=== PATIENT | male | born 1990 | race Caucasian/White ===

== ENCOUNTER 2018-12-10 11:06 | Inpatient (IN) | payer MEDICAID, OTHER ==
[2018-12-10] MEDS ORDERED: Nicotine Inhaler* 10 MG AMP INH PRN (11:36)
[2018-12-10 11:52] LABS: ABS Basophils 0 10^3/ul (0-0.2); ABS Eosinophils 0.1 10^3/ul (0-0.6); ABS Lymphocytes 0.8 10^3/ul (1.0-4.8); ABS Monocytes 0.5 10^3/ul (0-0.8); ABS Neutrophils 4.3 10^3/ul (1.5-7.7); ABS Nucleated RBC 0 10^3/ul; Eosinophil % 1.1 %; Hematocrit 44 % (42-52); Hemoglobin 14.9 g/dl (14.0-18.0); Lymphocyte % 13.9 %; Mean Corpuscular HGB Conc 34 g/dl (31-36); Mean Corpuscular Hemoglobin 30 pg (27-31); Mean Corpuscular Volume 89 fL (80-94); Mean Platelet Volume 8.1 fL (7.4-10.4); Nucleated Red Blood Cells % 0.1; Platelet Count 217 10^3/ul (150-450); Red Blood Count 4.99 10^6/ul (4.00-5.40); Red Cell Distribution Width 13 % (10.5-15); White Blood Count 5.7 10^3/ul (3.5-10.8)
[2018-12-10 12:09] LABS: ALT 12 U/L (7-52); AST 19 U/L (13-39); Albumin 4.8 g/dL (3.2-5.2); Albumin/Globulin Ratio 2.3 (1-3); Alkaline Phosphatase 76 U/L (34-104); Anion Gap 10 mmol/L (2-11); BUN/Creatinine Ratio 16.3 (8-20); Blood Urea Nitrogen 14 mg/dL (6-24); CO2 Carbon Dioxide 25 mmol/L (22-32); Calcium 8.8 mg/dL (8.6-10.3); Chloride 104 mmol/L (101-111); EGFR African American 126.3 (>60); EGFR Non-African American 104.4 (>60); Globulin 2.1 g/dL (2-4); Glucose 75 mg/dL (70-100); Potassium 3.9 mmol/L (3.5-5.0); Sodium 139 mmol/L (135-145); Total Protein 6.9 g/dL (6.4-8.9)
[2018-12-10 12:18] LABS: Urine Appearance Clear; Urine Bilirubin Negative (Negative); Urine Blood Negative (Negative); Urine Color Yellow; Urine Glucose Negative (Negative); Urine Ketones 2+ (Negative); Urine Nitrite Negative (Negative); Urine Protein Negative (Negative); Urine Urobilinogen Negative (Negative)
[2018-12-10 12:41] LABS: Acetaminophen < 15 mcg/mL; Alcohol < 10 mg/dL (<10); Salicylate < 2.50 mg/dL (<30)
[2018-12-10 12:53] LABS: Barbiturates Urine Screen None Detected (None Detect); Benzodiazepine Urine Screen None Detected (None Detect); Urine Cannabinoids Screen None Detected (None Detect)
[2018-12-10 12:55] LABS: TSH (Thyroid Stimulating Horm) 1.58 mcIU/mL (0.34-5.60)
--- NOTE | 2018-12-10 14:02 | ED ---
Psychiatric Complaint - HPI Summary HPI Summary: Patient is a 28-year-old male whose presenting to the ED with "hearing voices" for approximately 1 week. Family is at bedside. Family also states he has been going out in the cold and walking around in the snow. He states he is going to wind several million dollars and will get him "a good girlfriend." They state while he is antisocial and has anxiety when meeting new people, he has never had these types of behaviors before. Denies any pain, denies any recent illness. Denies any fevers, sweats, chills. He continues to take sertraline daily. He denies any suicidal or homicidal ideations, he denies any self-harm. - History Of Current Complaint Chief Complaint: EDMentalHealth Time Seen by Provider: 12/10/18 11:35 Hx Obtained From: Patient, Family/Accounting Teacher Onset/Duration: Gradual Onset Timing: Constant Severity Initially: Severe Severity Currently: Severe Aggravating Factor(s): Nothing Alleviating Factor(s): Nothing Associated Signs And Symptoms: Positive: Negative - Risk Factor(s) Completed Suicide Risk Factors: Male - Allergies/Home Medications Allergies/Adverse Reactions: Allergies Allergy/AdvReac Type Severity Reaction Status Date / Time No Known Allergies Allergy Verified 12/10/18 11:14 Home Medications: Home Medications Sertraline* [Zoloft*] 100 mg PO DAILY 12/10/18 [History Confirmed 12/10/18] PMH/Surg Hx/FS Hx/Imm Hx Previously Healthy: Yes Psychiatric History: Denies: Hx Eating Disorder, Hx of Violent Episodes Against Others - Immunization History Hx Pertussis Vaccination: No Immunizations Up to Date: Yes Infectious Disease History: No Infectious Disease History: Denies: Traveled Outside the [place] in Last 30 Days - Social History Occupation: Unemployed Lives: With Family Alcohol Use: None Hx Substance Use: No Substance Use Type: Reports: None Hx Tobacco Use: No Smoking Status (MU): Never Smoked Tobacco Review of Systems Constitutional: Negative Negative: Fever, Chills, Fatigue, Skin Diaphoresis Negative: Palpitations, Chest Pain Negative: Shortness Of Breath, Cough Genitourinary: Negative Positive: no symptoms reported, see HPI Negative: Arthralgia, Myalgia Positive: Other - acute psychosis. Negative: Anxious, Depressed All Other Systems Reviewed And Are Negative: Yes Physical Exam Triage Information Reviewed: Yes Vital Signs On Initial Exam: Initial Vitals Temp Pulse Resp BP Pulse Ox 99.2 F 112 17 133/85 96 12/10/18 11:11 12/10/18 11:11 12/10/18 11:11 12/10/18 11:11 12/10/18 11:11 Vital Signs Reviewed: Yes Appearance: Positive: Ill-Appearing, Thin, Cachectic Skin: Positive: Dry, Pale Eyes: Positive: EOMI, AQUILES, Conjunctiva Clear Neck: Positive: No Lymphadenopathy Respiratory/Lung Sounds: Positive: Clear to Auscultation, Breath Sounds Present Cardiovascular: Positive: Pulses are Symmetrical in both Upper and Lower Extremities Musculoskeletal: Positive: Strength/ROM Intact Neurological: Positive: Speech Normal Psychiatric: Positive: Other - Patient cooperative for exam. Patient appears to have social anxiety. Diagnostics - Vital Signs Vital Signs Temp Pulse Resp BP Pulse Ox 12/10/18 11:11 99.2 F 112 17 133/85 96 - Laboratory Lab Results: Lab Results 12/10/18 12/10/18 12/10/18 Range/Units 11:42 11:42 11:52 WBC 5.7 (3.5-10.8) 10^3/ul RBC 4.99 (4.00-5.40) 10^6/ul Hgb 14.9 (14.0-18.0) g/dl Hct 44 (42-52) % MCV 89 (80-94) fL MCH 30 (27-31) pg MCHC 34 (31-36) g/dl RDW 13 (10.5-15) % Plt Count 217 (150-450) 10^3/ul MPV 8.1 (7.4-10.4) fL Neut % (Auto) 74.9 % Lymph % (Auto) 13.9 % Fayette % (Auto) 9.6 % Eos % (Auto) 1.1 % Baso % (Auto) 0.5 % Absolute Neuts (auto) 4.3 (1.5-7.7) 10^3/ul Absolute Lymphs (auto) 0.8 L (1.0-4.8) 10^3/ul Absolute Monos (auto) 0.5 (0-0.8) 10^3/ul Absolute Eos (auto) 0.1 (0-0.6) 10^3/ul Absolute Basos (auto) 0 (0-0.2) 10^3/ul Absolute Nucleated RBC 0 10^3/ul Nucleated RBC % 0.1 Sodium 139 (135-145) mmol/L Potassium 3.9 (3.5-5.0) mmol/L Chloride 104 (101-111) mmol/L Carbon Dioxide 25 (22-32) mmol/L Anion Gap 10 (2-11) mmol/L BUN 14 (6-24) mg/dL Creatinine 0.86 (0.67-1.17) mg/dL Est GFR ( Amer) 126.3 (>60) Est GFR (Non-Af Amer) 104.4 (>60) BUN/Creatinine Ratio 16.3 (8-20) Glucose 75 (70-100) mg/dL Calcium 8.8 (8.6-10.3) mg/dL Total Bilirubin 0.40 (0.2-1.0) mg/dL AST 19 (13-39) U/L ALT 12 (7-52) U/L Alkaline Phosphatase 76 (34-104) U/L Total Protein 6.9 (6.4-8.9) g/dL Albumin 4.8 (3.2-5.2) g/dL Globulin 2.1 (2-4) g/dL Albumin/Globulin Ratio 2.3 (1-3) TSH 1.58 (0.34-5.60) mcIU/mL Urine Color Yellow Urine Appearance Clear Urine pH 5.0 (5-9) Ur Specific Thornton 1.020 (1.010-1.030) Urine Protein Negative (Negative) Urine Ketones 2+ A (Negative) Urine Blood Negative (Negative) Urine Nitrate Negative (Negative) Urine Bilirubin Negative (Negative) Urine Urobilinogen Negative (Negative) Ur Leukocyte Esterase Negative (Negative) Urine Glucose Negative (Negative) Salicylates < 2.50 (<30) mg/dL Urine Opiates Screen (None Detect) Acetaminophen < 15 mcg/mL Ur Barbiturates Screen (None Detect) Ur Phencyclidine Scrn (None Detect) Ur Amphetamines Screen (None Detect) U Benzodiazepines Scrn (None Detect) Urine Cocaine Screen (None Detect) U Cannabinoids Screen (None Detect) Serum Alcohol < 10 (<10) mg/dL 12/10/18 Range/Units 11:52 WBC (3.5-10.8) 10^3/ul RBC (4.00-5.40) 10^6/ul Hgb (14.0-18.0) g/dl Hct (42-52) % MCV (80-94) fL MCH (27-31) pg MCHC (31-36) g/dl RDW (10.5-15) % Plt Count (150-450) 10^3/ul MPV (7.4-10.4) fL Neut % (Auto) % Lymph % (Auto) % Fayette % (Auto) % Eos % (Auto) % Baso % (Auto) % Absolute Neuts (auto) (1.5-7.7) 10^3/ul Absolute Lymphs (auto) (1.0-4.8) 10^3/ul Absolute Monos (auto) (0-0.8) 10^3/ul Absolute Eos (auto) (0-0.6) 10^3/ul Absolute Basos (auto) (0-0.2) 10^3/ul Absolute Nucleated RBC 10^3/ul Nucleated RBC % Sodium (135-145) mmol/L Potassium (3.5-5.0) mmol/L Chloride (101-111) mmol/L Carbon Dioxide (22-32) mmol/L Anion Gap (2-11) mmol/L BUN (6-24) mg/dL Creatinine (0.67-1.17) mg/dL Est GFR ( Amer) (>60) Est GFR (Non-Af Amer) (>60) BUN/Creatinine Ratio (8-20) Glucose (70-100) mg/dL Calcium (8.6-10.3) mg/dL Total Bilirubin (0.2-1.0) mg/dL AST (13-39) U/L ALT (7-52) U/L Alkaline Phosphatase (34-104) U/L Total Protein (6.4-8.9) g/dL Albumin (3.2-5.2) g/dL Globulin (2-4) g/dL Albumin/Globulin Ratio (1-3) TSH (0.34-5.60) mcIU/mL Urine Color Urine Appearance Urine pH (5-9) Ur Specific Thornton (1.010-1.030) Urine Protein (Negative) Urine Ketones (Negative) Urine Blood (Negative) Urine Nitrate (Negative) Urine Bilirubin (Negative) Urine Urobilinogen (Negative) Ur Leukocyte Esterase (Negative) Urine Glucose (Negative) Salicylates (<30) mg/dL Urine Opiates Screen None detected (None Detect) Acetaminophen mcg/mL Ur Barbiturates Screen None detected (None Detect) Ur Phencyclidine Scrn None detected (None Detect) Ur Amphetamines Screen None detected (None Detect) U Benzodiazepines Scrn None detected (None Detect) Urine Cocaine Screen None detected (None Detect) U Cannabinoids Screen None detected (None Detect) Serum Alcohol (<10) mg/dL Result Diagrams: 12/10/18 11:42 12/10/18 11:42 Lab Statement: Any lab studies that have been ordered have been reviewed, and results considered in the medical decision making process. Course/Dx - Course Course Of Treatment: During the course treatment, the patient's evaluated for new bizarre behaviors per family. Patient states he is hearing voices. Patient states he continues to take sertraline daily and denies any suicidal or homicidal ideations. Denies any self-harm. He denies any pain or recent illness. Lungs CTA. RRR. Patient appears well, however continues to put his hands next to his face as we tried to talk to them. Mother states this is normal for him and he has social anxiety. Mental health evaluation completed and it is recommended he come in for further evaluation. [place] [facility] [place] - Differential Dx/Clinical Impression Differential Diagnosis/HQI/PQRI: Positive: Anxiety Provider Diagnosis: Unspecified psychosis Discharge - Sign-Out/Discharge Documenting (check all that apply): Patient Departure - Discharge Plan Condition: Fair Disposition: ADMITTED TO [facility] Referrals: Connor Genao NP [Primary Care Provider] - - Billing Disposition and Condition Condition: FAIR Disposition: Admitted to [facility]
[2018-12-10] MEDS ORDERED: Acetaminophen TAB* 325 MG PO PRN (14:36)
[2018-12-10] MEDS ORDERED: Al Hydrox/Mg Hydrox/Simet LIQ* 30 ML UDC PO PRN (14:36)
[2018-12-10] MEDS ORDERED: LORazepam TAB(*) 1 MG PO PRN (14:37)
[2018-12-10] MEDS ORDERED: Haloperidol TAB* 5 MG PO PRN (14:37)
--- OUTSIDE RECORDS SUMMARY | 2018-12-10 17:11 | XMS REPORT | Continuity of Care Document ---
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 19 day Immunizations Description No Information Available Vital Signs Date Vital Result Comment 12/10/2018 9:40am Height 63 inches 5'3" Weight 96.25 lb Heart Rate 112 /min BP Systolic 140 mmHg BP Diastolic 90 mmHg Body Temperature 98.7 F O2 % BldC Oximetry 97 % BMI (Body Mass Index) 17.0 kg/m2 09/26/2015 9:41am Height 63 inches 5'3" Weight 97.00 lb Heart Rate 120 /min BP Systolic Sitting 129 mmHg BP Diastolic Sitting 78 mmHg Body Temperature 99.2 F BMI (Body Mass Index) 17.2 kg/m2 Results Description No Information Available Procedures Description No Information Available Encounters Type Date Location Provider Dx Diagnosis Office Visit 09/26/2015 [facility] Internal Gilbert Lam F43.23 Adjustment 10:00a Juve - Eduardo Mccarthy disorder with [place] mixed anxiety and depressed mood Plan of Treatment 09/26/2015 - Gilbert Mccarthy M.D.F43.23 Adjustment disorder with mixed anxiety and depressed moodNew Medication:Zoloft 25 mg - 1 by mouth every dayComments:Chronic ?anxiety/depression/mood issues with recent ER eval for a suicidal gesture. No past psych evals; therapist eval advised by the ER but not set up by pt. (+) past hx of Zoloft Rx by a PCP, but no formal psychiatric eval then, either. Psych eval again advised; pending that eval, resume Zoloft at 25 mg daily and titrate dose as needed. Pt advised Rx can be continued for a limited time until heis evaluated by psych. Pt also strongly advised to pursue obtaining health insurance coverage via Medicaid or the health insurance exchange. Speech therapy eval discussed for his speech issues if coverage can be obtainedRef[facility] CounselorFollow up:4 weeks
[2018-12-11] MEDS: Sertraline* 100 MG TAB PO SCH (09:30)
[2018-12-11] MEDS ORDERED: Paliperidone ER TAB* 3 MG TAB.ER PO SCH (21:00)
--- NOTE | 2018-12-11 22:52 | HP ---
HISTORY AND PHYSICAL: DATE OF ADMISSION: 12/11/18 PROVIDER: Sarah Fischer NP in Psychiatry. sUPERVISING PHYSICIAN: Fidel Chowdhury MD * (DICTATED BY SARAH FISCHER NP ) JUSTIFICATION FOR ADMISSION: The patient is in need of 24-hour supervision and care secondary to violent ideation, possibly homicidal ideation. CHIEF COMPLAINT: "I get really nervous around people." HISTORY OF PRESENT ILLNESS: The patient is a 28-year-old single white male with a history of anxiety and autism, who arrives brought in by his family to the emergency department after concerns that he has been hearing voices over the past week and that the voices are telling him that soon he will be the world 's richest person and he will have an attractive girlfriend and they are also talking about having to make threats against people on television. 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 Chucho is quite shy. He makes poor eye contact. He is constantly playing with puzzle pieces while I talk to him and try to elicit some information from him. He smiles at times and laughs appropriately, but also states that the voices that he is hearing are new to him that they have only been occurring in the past week and he does not know the source of them and they make him uncomfortable. I did ask him questions wondering if he was manic. He is grandiose in some ways. He does not appear to making frivolous choices, however , and he is certainly not being indiscreet in anyway. PAST PSYCHIATRIC HISTORY: He has never been admitted anywhere. He does not currently see a therapist. He has no outpatient psychiatric treatment. He has been diagnosed with anxiety in the past, likely generalized anxiety disorder. He has been prescribed Zoloft 100 mg. He has never been violent outright in the past, although he was not allowed to return to high school due to having made a bomb threat at the school. There is no trauma history that he describes. There has been no traumatic brain injuries that he notes. He is difficult to elicit information from and some of this information may need to be elicited from his parents who are extremely supportive and concerned. PAST MEDICAL HISTORY: He states that he does not have problematic medical history with the exception of asthma. He states he has no allergies to medication. FAMILY HISTORY: He states his sister is depressed and he believes his mother and father are depressed as well. SUBSTANCE ABUSE: He denies all substance abuse including nicotine, marijuana, alcohol as well as all other substances. SOCIAL HISTORY: This 28-year-old man lives with his parents and has always lived with his parents. There was a period from age 16 to 20 approximately, where he did not leave the house at all and he generally spent time playing video games what he calls [employer], things like Grand Theft Auto and others. He did go to [employer] and got a degree in [employer]. He is neither nor partnered. He is heterosexual. Employment is unclear at this time as he told the evaluators that he was employed, yet he denied that to me. REVIEW OF SYSTEMS: The patient reports feeling fatigued. He denies shortness of breath, heat or cold intolerance, chest pain or abdominal pain. He denies neurological symptoms. He denies fevers or changes in weight. He is very slim and says he has not been hungry lately. PHYSICAL EXAMINATION VITAL SIGNS: On 12/10/18 at 1744, his temperature 100.7, pulse 104, respirations 16, O2 sat on room air 100%, blood pressure 136/74. For further exam data, please see emergency department records, which indicated overall typical exam. DIAGNOSTIC STUDIES/LAB DATA: Laboratory data are within normal limits with the exception of absolute lymphocytes low at 0.8. His urine was positive for ketones. His toxicology screen was negative. MENTAL STATUS EXAMINATION: This is a very thin man with tousled brown hair and prominent eyes, who makes poor eye contact and sits in a chair working on a puzzle, curled up. He is fidgety, but he is calm and he is cooperative. He trembles and states he is not cold, but he is anxious. His speech is normal tone and it is soft, it is somewhat staccato in his manner of speaking. He appears dysthymic. He has a constricted affect. His thought process may be rapid, it seems he is having a hard time finding what he wants to say. Delusions are noted in the evaluation. He does not when I speak with him say he is suicidal or homicidal. He does not talk about the content of his hallucinations at all, but they are auditory. His insight is fair to poor. Judgment is fair. He is alert and oriented x3. DIAGNOSES: Include psychotic disorder, autism, generalized anxiety disorder, and asthma. IMPRESSION: Chucho is a 28-year-old single white male, who is quite small, both thin and in stature, who comes to the unit brought by his family following decompensation and sliding into violent command hallucinations to harm people on the television and he sometimes speaks to the television. PLAN: The patient is admitted to the Adult Behavioral Health Unit and placed on a q.15 minute checks for his own safety. He is encouraged to participate in supportive milieu, individual, and group therapies. His estimated length of stay is 5 to 7 days. We may obtain MMPI for diagnostic clarification. We will titrate medications to efficacy and monitor for mood and thought content. We are continuing Zoloft 100 mg from the outpatient setting and adding Invega 3 mg , which he is eager to try. Discharge planning will include family involvement and outpatient providers. SARAH FISCHER, CATARINA [id number]/CPS #: [id number] EDUARD
[2018-12-12] MEDS: Sertraline* 100 MG TAB PO SCH (09:20)
[2018-12-12] MEDS: LORazepam TAB(*) 0.5 MG PO PRN ×2 (09:20→19:52)
--- NOTE | 2018-12-12 14:34 | PN ---
Subjective - Subjective Date of Service: 12/12/18 Service Type: 69475 Hosp care 15 min low complexity Subjective: Chucho is seen in weekend coverage for NPP, Sarah Fischer. He is pacing the unit and reading a video game magazine, appearing to respond to internal stimuli. On exam his cooperative and quite agreeable. Unfortunately he continues to experience significant auditory hallucinations, and, at times, appears to have to internally converse with them before responding to a given question. He tolerated his low dose of paliperidone well last night and is agreeable with increasing this slightly, as his voices are highly ego-dystonic. He denies SI or HI, although he oddly mentions that he threatened to bring a gun to school in [place], [place] when he was in the 11th grade. Objective - Appearance Appearance: Well Developed/Nourished Dysmorphic Features: No Hygiene: Dirty Grooming: Disheveled - Behavior Psychomotor Activities: Normal Exhibits Abnormal Movement: No - Attitude and Relatedness Attitude and Relatedness: Cooperative Eye Contact: Fair - Speech Quality: Unpressured Latencies: Long Quantity: Terse - Mood Patient's Decription of Mood: "Okay" - Affect Observed Affect: Unvariable Affect Consistent with: Dysphoria - Thought Process Patient's Thought Process: Coherent Thought Content: Yes Paranoid Ideation, No Passive Wish, No Suicidal Planning, No Homicidal Ideation - Sensorium Experiencing Hallucinations: Yes Type of Hallucinations: Visual: No, Auditory: Yes, Command: Yes - Level of Consciousness Level of Consciousness: Alert Orientation: Yes Intact, Yes Orientated to Time, Yes Orientated to Place, Yes Orientated to Person - Impulse Control Impulse Control: Tenuous - Insight and Judgement Insight and Judgement: Fair - Group Participation Particating in Group Activities: Yes - Medication Management Medication Management Adherence: Yes Assessment - Assessment Merits Inpatient Hospitalization: For Immediate Safety, For Stabilization Inpatient DSM-V Dx: F29 Clinical Impression: 28 y.o. single, white male with a history of autism spectrum disorder and depression, who lives with his parents, is brought in by his family on a voluntary status seeking help for auditory hallucinations leading to violent and homicidal thoughts. BSU: Problem List - Patient Problems (1) Psychosis Current Visit: Yes Status: Acute Plan - Plan Treatment Plan: Name: CHUCHO LANCE Birthdate: 1990 [id number] We have started the patient on a trial of paliperidone 3mg PO qhs, which he is tolerating well so far. We'll increase this to 6mg nightly and continue to manage on the inpatient unit. Continued Medication Management: Start Medication Medications: Current Medications Acetaminophen (Tylenol Tab*) 650 mg PO Q4H PRN PRN Reason: for pain; or Temp >101 F Al Hydrox/Mg Hydrox/Simethicone (Maalox Plus*) 30 ml PO Q4H PRN PRN Reason: INDIGESTION Haloperidol (Haldol Tab*) 5 mg PO Q6H PRN PRN Reason: AGITATION Lorazepam (Ativan Tab(*)) 0.5 mg PO Q6H PRN PRN Reason: Anxiety/Insomnia Last Admin: 12/12/18 09:20 Dose: 0.5 mg Nicotine (Nicotine Inhaler*) 10 mg INH Q2H PRN PRN Reason: CRAVING Sertraline HCl (Zoloft*) 100 mg PO DAILY MELE Last Admin: 12/12/18 09:20 Dose: 100 mg - Discharge Plan Discharge Plan: Inpatient Hospitalization
[2018-12-12] MEDS: Paliperidone ER TAB* 6 MG TAB.ER PO SCH (19:52)
[2018-12-13 08:32] LABS: HDL Cholesterol 42.1 mg/dL
[2018-12-13] MEDS: Sertraline* 100 MG TAB PO SCH (10:00)
[2018-12-13] MEDS: LORazepam TAB(*) 0.5 MG PO PRN (13:25)
[2018-12-13] MEDS: Paliperidone ER TAB* 6 MG TAB.ER PO SCH (20:41)
[2018-12-14] MEDS: Sertraline* 100 MG TAB PO SCH (09:44)
[2018-12-14] MEDS ORDERED: Paliperidone SUSTENNA* 234 MG/1.5 ML IM ONE ×2 (12:34)
--- NOTE | 2018-12-14 14:29 | PN ---
Subjective - Subjective Date of Service: 12/14/18 Service Type: 63903 Hosp care 25 min moderate complexity Subjective: Met with Crow, his mom, Sandra, his dad, Bear, and his sister after lunch. Crow averts his eyes through most of the conversation, but when he does look up he is clearly attentive to the situation. During the talk, Invega Sustenna is proposed, with the first injection of 234 mg today and 156 mg on . Crow accepts this as a fine idea, but he is quite agreeable to most ideas. His father makes sure that this is within Crow's comfort zone and ascertains that it is fine. Crow feels like he might be feeling a little better, but he is still clearly troubled by auditory hallucinations. Objective - Appearance Appearance: Thin Framed Dysmorphic Features: No Hygiene: Normal Grooming: Disheveled - Behavior Psychomotor Activities: Normal Exhibits Abnormal Movement: No - Attitude and Relatedness Attitude and Relatedness: Child Like Eye Contact: Poor - Speech Quality: Unpressured Latencies: Short Quantity: Terse - Mood Patient's Decription of Mood: "Fine" - Affect Observed Affect: Fair Affect Consistent with: Dysphoria - Thought Process Patient's Thought Process: Circumstantial Thought Content: Yes Paranoid Ideation, No Passive Wish, No Suicidal Planning, No Homicidal Ideation - Sensorium Experiencing Hallucinations: Yes Type of Hallucinations: Visual: No, Auditory: Yes, Command: No - Level of Consciousness Level of Consciousness: Alert Orientation: Yes Intact, Yes Orientated to Time, Yes Orientated to Place, Yes Orientated to Person - Impulse Control Impulse Control: Impaired - Insight and Judgement Insight and Judgement: Impaired - Group Participation Particating in Group Activities: No - Medication Management Medication Management Adherence: Yes Assessment - Assessment Merits Inpatient Hospitalization: For Immediate Safety, For Discharge Planning Inpatient DSM-V Dx: F29 Clinical Impression: 28 y.o. single, white male with a history of autism spectrum disorder and depression, who lives with his parents, is brought in by his family on a voluntary status seeking help for auditory hallucinations leading to violent and homicidal thoughts. Plan - Plan Treatment Plan: Name: CROW LANCE Birthdate: 1990 [id number] We have started the patient on a trial of paliperidone 3mg PO qhs, which he is tolerating well so far. We'll increase this to 6mg nightly and continue to manage on the inpatient unit. 12/14/18 As Crow reports feeling "a little better" we will move on with Invega treatment and include an injectable (Invega Sustenna) and begin with the 234 mg injection. On , he will receive 156 mg. At that point we may consider discharge. Continued Medication Management: Different Medication Medications: Current Medications Acetaminophen (Tylenol Tab*) 650 mg PO Q4H PRN PRN Reason: for pain; or Temp >101 F Al Hydrox/Mg Hydrox/Simethicone (Maalox Plus*) 30 ml PO Q4H PRN PRN Reason: INDIGESTION Lorazepam (Ativan Tab(*)) 0.5 mg PO Q6H PRN PRN Reason: Anxiety/Insomnia Last Admin: 12/13/18 13:25 Dose: 0.5 mg Nicotine (Nicotine Inhaler*) 10 mg INH Q2H PRN PRN Reason: CRAVING Paliperidone Palmitate (Invega Sustenna*) 156 mg IM ONCE ONE Stop: 12/17/18 12:35 Sertraline HCl (Zoloft*) [address] [facility] Last Admin: 12/14/18 09:44 Dose: 100 mg - Discharge Plan Discharge Plan: Outpatient Follow Up Outpatient Program: Hari Wade [facility]
[2018-12-14] MEDS: LORazepam TAB(*) 0.5 MG PO PRN (20:12)
[2018-12-15] MEDS: LORazepam TAB(*) 0.5 MG PO PRN ×2 (01:12→20:45)
[2018-12-15] MEDS: Sertraline* 100 MG TAB PO SCH (09:51)
--- NOTE | 2018-12-15 16:19 | PN ---
Subjective - Subjective Date of Service: 12/15/18 Service Type: [id number] Hosp care 15 min low complexity Subjective: Chucho is found working with puzzle pieces. He doesn't put the puzzle together, exactly, but he seems fascinated by putting pieces together and taking them apart. When we speak together, Chucho is agreeable. He states he feels fine and that he would be happy to be discharged on . He seems to be tolerating this environment well enough and remains positive. He reports no auditory hallucinations and does not hold his head in his hands during conversation or when observed across the milieu. Objective - Appearance Appearance: Thin Framed Dysmorphic Features: No Hygiene: Normal Grooming: Disheveled - Behavior Psychomotor Activities: Normal Exhibits Abnormal Movement: No - Attitude and Relatedness Attitude and Relatedness: Cooperative Eye Contact: Poor - Speech Quality: Unpressured Latencies: Short Quantity: Terse - Mood Patient's Decription of Mood: "Good" - Affect Observed Affect: Constricted Affect Consistent with: Euthymia - Thought Process Patient's Thought Process: Coherent Thought Content: No Passive Wish, No Suicidal Planning, No Homicidal Ideation, No Paranoid Ideation - Sensorium Experiencing Hallucinations: No, Sensorium is Clear Type of Hallucinations: Visual: No, Auditory: No, Command: No - Level of Consciousness Level of Consciousness: Alert Orientation: Yes Intact, Yes Orientated to Time, Yes Orientated to Place, Yes Orientated to Person - Impulse Control Impulse Control: Impaired - Insight and Judgement Insight and Judgement: Impaired - Group Participation Particating in Group Activities: Yes - Medication Management Medication Management Adherence: Yes Assessment - Assessment Merits Inpatient Hospitalization: For Immediate Safety, For Stabilization, For Discharge Planning Inpatient DSM-V Dx: F29 Clinical Impression: 28 y.o. single, white male with a history of autism spectrum disorder and depression, who lives with his parents, is brought in by his family on a voluntary status seeking help for auditory hallucinations leading to violent and homicidal thoughts. Plan - Plan Treatment Plan: Name: CHUCHO LANCE Birthdate: 1990 [id number] We have started the patient on a trial of paliperidone 3mg PO qhs, which he is tolerating well so far. We'll increase this to 6mg nightly and continue to manage on the inpatient unit. 12/14/18 As Chucho reports feeling "a little better" we will move on with Invega treatment and include an injectable (Invega Sustenna) and begin with the 234 mg injection. On , he will receive 156 mg. At that point we may consider discharge. 12/15/18 Discharge is more firmly set for . Chucho is agreeable to that date. Medications: Current Medications Acetaminophen (Tylenol Tab*) 650 mg PO Q4H PRN PRN Reason: for pain; or Temp >101 F Al Hydrox/Mg Hydrox/Simethicone (Maalox Plus*) 30 ml PO Q4H PRN PRN Reason: INDIGESTION Lorazepam (Ativan Tab(*)) 0.5 mg PO Q6H PRN PRN Reason: Anxiety/Insomnia Last Admin: 12/15/18 01:12 Dose: 0.5 mg Nicotine (Nicotine Inhaler*) 10 mg INH Q2H PRN PRN Reason: CRAVING Paliperidone Palmitate (Invega Sustenna*) 156 mg IM ONCE ONE Stop: 12/17/18 12:35 Sertraline HCl (Zoloft*) 100 mg PO DAILY MELE Last Admin: 12/15/18 09:51 Dose: 100 mg - Discharge Plan Discharge Plan: Outpatient Follow Up Outpatient Program: [facility]
[2018-12-16] MEDS: Sertraline* 100 MG TAB PO SCH (09:20)
--- NOTE | 2018-12-16 15:56 | PN ---
Subjective - Subjective Date of Service: 12/16/18 Service Type: [id number] Hosp care 15 min low complexity Subjective: Chucho and I walked around the unit and talked. Chucho had some trouble articulating what he wanted to say, specifically about auditory hallucinations. Although it was not clear exactly what the voices he hears were saying, he did make it clear that the voices were less troubling than they had been. Further, he feels less anxious around people. His eye contact was more purposeful, as well. Objective - Appearance Appearance: Thin Framed Dysmorphic Features: No Hygiene: Normal Grooming: Disheveled - Behavior Psychomotor Activities: Normal Exhibits Abnormal Movement: No - Attitude and Relatedness Attitude and Relatedness: Cooperative Eye Contact: Fair - Speech Quality: Unpressured Latencies: Short Quantity: Terse - Mood Patient's Decription of Mood: "Good" - Affect Observed Affect: Constricted Affect Consistent with: Euthymia - Thought Process Patient's Thought Process: Coherent Thought Content: No Passive Wish, No Suicidal Planning, No Homicidal Ideation, No Paranoid Ideation - Sensorium Experiencing Hallucinations: Yes Type of Hallucinations: Visual: No, Auditory: Yes, Command: No - Level of Consciousness Level of Consciousness: Alert Orientation: Yes Intact, Yes Orientated to Time, Yes Orientated to Place, Yes Orientated to Person - Impulse Control Impulse Control: Impaired - Insight and Judgement Insight and Judgement: Impaired - Group Participation Particating in Group Activities: No - Medication Management Medication Management Adherence: Yes Assessment - Assessment Merits Inpatient Hospitalization: For Immediate Safety, Pending Safe DC Plan Inpatient DSM-V Dx: F29 Clinical Impression: 28 y.o. single, white male with a history of autism spectrum disorder and depression, who lives with his parents, is brought in by his family on a voluntary status seeking help for auditory hallucinations leading to violent and homicidal thoughts. Plan - Plan Treatment Plan: Name: CHUCHO LANCE Birthdate: 1990 [id number] We have started the patient on a trial of paliperidone 3mg PO qhs, which he is tolerating well so far. We'll increase this to 6mg nightly and continue to manage on the inpatient unit. 12/14/18 As Chucho reports feeling "a little better" we will move on with Invega treatment and include an injectable (Invega Sustenna) and begin with the 234 mg injection. On , he will receive 156 mg. At that point we may consider discharge. 12/15/18 Discharge is more firmly set for . Chucho is agreeable to that date. 12/16/18 is the date of discharge. He will return to his home with his mom and dad. Medications: Current Medications Acetaminophen (Tylenol Tab*) 650 mg PO Q4H PRN PRN Reason: for pain; or Temp >101 F Al Hydrox/Mg Hydrox/Simethicone (Maalox Plus*) 30 ml PO Q4H PRN PRN Reason: INDIGESTION Lorazepam (Ativan Tab(*)) 0.5 mg PO Q6H PRN PRN Reason: Anxiety/Insomnia Last Admin: 12/15/18 20:45 Dose: 0.5 mg Nicotine (Nicotine Inhaler*) 10 mg INH Q2H PRN PRN Reason: CRAVING Paliperidone Palmitate (Invega Sustenna*) 156 mg IM ONCE ONE Stop: 12/17/18 12:35 Sertraline HCl (Zoloft*) 100 mg PO DAILY MELE Last Admin: 12/16/18 09:20 Dose: 100 mg - Discharge Plan Discharge Plan: Outpatient Follow Up Outpatient Program: [facility]
[2018-12-17] MEDS: LORazepam TAB(*) 0.5 MG PO PRN (03:47)
[2018-12-17 08:38] VITALS: BP 125/78
[2018-12-17] MEDS ORDERED: Paliperidone SUSTENNA* 156 MG/1 ML IM ONE ×2 (12:00→12:34)
[2018-12-17] MEDS: Sertraline* 100 MG TAB PO SCH (12:03)
--- NOTE | 2018-12-21 14:35 | DS ---
CC: [facility] DISCHARGE SUMMARY: DATE OF ADMISSION: 12/10/18 DATE OF DISCHARGE: 12/17/18 PROVIDER: Sarah Fischer NP, in Psychiatry. SUPERVISING PHYSICIAN: Dr. Fidel Chowdhury. DIAGNOSES: 1. Psychosis, not otherwise specified. 2. Autism. 3. Generalized anxiety disorder. CONDITION AT THE TIME OF DISCHARGE: Improved. Psychiatrically cleared, more stable. Did not partic ipate in many groups, but was mildly social with peers. His family is agreeable to discharge. Chucho has done well here psychiatrically. He tolerated new medications including Invega and the injectabl e Sustenna, and he will attend [facility]. MENTAL STATUS EXAM AT THE TIME OF DISCHARGE: Chucho is calm and cooperative. His eye contact is inte rmittent. He is alert and oriented x3. His grooming is good. His speech phase is normal. His thoug ht processes are logical. He remains psychotic, hearing voices, but these are reduced and they are m ore friendly. Further his intense anxiety has been reduced. He is neither suicidal nor homicidal. H is insight is fair. His judgment is fair. He states he is willing to follow up. DISCHARGE INSTRUCTIONS TO THE PATIENT: A. Medications: 1. He has Ativan 0.5 q.6 hours p.r.n. anxiety and insomnia. 2. Invega Sustenna, the 234 mg injection was on 12/14/18, the 156 mg dose was on 12/17/18, that mean s that his next dose is due to 01/14/19. 3. Sertraline 100 mg is also prescribed and is a carry over from his admission. B. Diet: Regular. C. Activities: As tolerated. He is a nonsmoker. There are no studies pending at the time of disch arge. D. Followup care. He has followup with [facility] as well as a [facility] referral fo care coordination. Connor Genao is his nurse practitioner. Substance abuse followup is not indicated . HOSPITAL COURSE: Part A. Chief Complaint: "I get really nervous around people." The patient is a [age]-year-old single white male with a history of anxiety and autism, who arrives brought in by his fami ly to the emergency department after concerns that he has been hearing voices over the past week and that the voices are telling him that soon he will be the world's richest person and he will have an a ttractive girlfriend and they are also talking about having to make threats again people on televisio n. 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 Chucho is quite shy. He makes poor eye contact. He is constantly playing with puzzle pieces while I talk to him and try to elicit some information from him. He smiles at times and laughs appropriately , but also states that the voices he is hearing are new to him and that they have only been occurring in the past week and he does not know the source of them and they make him uncomfortable. I did ask him questions wondering if he was manic. He is grandiose in some ways. He does not appear to be ma giovana frivolous choices, however, and he is certainly not being discrete in any way. Part B. Psychiatric treatments rendered: Chucho was admitted to the adult behavioral unit and placed on 15-minute checks for safety. He did well on the unit, in that he was in behavioral control and pleasant to everyone. He did not go to many groups. He did eventually interact with peers well and he felt like the medication was working and he was much less socially anxious. Perla Parikh was s tarted. He tolerated that well. He got the first dose of 234 on 12/14/18, the second dose of 156 on 12/17/18 and is due for his next dose which could potentially be lower than 156. Sertraline was con tinued from home. Chucho's hemoglobin A1c is 4.9, his triglycerides are 80, cholesterol 161, LDL chol esterol 103, HDL cholesterol 42.1, incidentally his TSH is 1.58. I did meet with his family. They w ere supportive and concerned and caring. They are in favor of him going to the [facility] and in favor of him getting a animal care attendant. He has improved, in that he is less frightened by the voices he hears and they have subsided in their negativity. SARAH FISCHER, RADIOLOGY SUPERVISOR [id number]/[facility] #: [id number]
== END 2018-12-17 13:30 | disposition home or self-care (01) | DRG 751 ==
LOC: ED 11:06 → BSU 17:06
PROVIDERS: ADMIT Psychiatry & Neurology Psychiatry; ATTEND Psychiatry & Neurology Psychiatry
DX: F29 Unspecified psychosis not due to a substance or known physiological condition (principal); F84.0 Autistic disorder; J45.909 Unspecified asthma, uncomplicated; F41.1 Generalized anxiety disorder; F32.9 Major depressive disorder, single episode, unspecified; R45.850 Homicidal ideations; Z81.8 Family history of other mental and behavioral disorders
CPT/HCPCS: 36415; 80053; 80061; 80307; 80320; 80329; 81003; 83036; 84443; 85025; 99222; 99231; 99232; 99238; 99283; A9270-GY; G0480

== ENCOUNTER 2019-11-01 17:02 | Emergency (ER) | payer OTHER ==
[2019-11-01] MEDS ORDERED: Ondansetron INJ* 2 MG/ML VIAL IV ONE (17:31)
[2019-11-01] MEDS ORDERED: NS 0.9% 1000 ML** 2,000 ML IV ONE (17:31)
--- NOTE | 2019-11-01 17:34 | ED ---
GI/ HPI - HPI Summary HPI Summary: 29 year old male presents with vomiting for past 8 days. He states has not been able to keep anything down. He has not had a bowel movement in many dayss He denies any diarrhea. No fevers. No abdominal pain. No chest pressures or shortness of breath. No cough. No sore throat. No urinary symptoms. the rest family is sick but they did not have the vomiting. He denies any headache. He states he just feels very weak. Denies any recent change in medication. Did not eat anything different. - History of Current Complaint Chief Complaint: EDNauseaVomitDiarrh Time Seen by Provider: 11/01/19 17:23 Stated Complaint: VOMITING PER PT Pain Intensity: 0 - Additional Pertinent History Primary Care Physician: Connor Genao - Allergy/Home Medications Allergies/Adverse Reactions: Allergies Allergy/AdvReac Type Severity Reaction Status Date / Time No Known Allergies Allergy Verified 11/01/19 17:08 Home Medications: Home Medications LORazepam TAB(*) [Ativan 0.5 MG TAB (*)] 0.5 mg PO BID PRN 11/01/19 [History Confirmed 11/01/19] Paliperidone SUSTENNA* [Invega Sustenna*] 234 mg IM Q30D 11/01/19 [History Confirmed 11/01/19] PMH/Surg Hx/FS Hx/Imm Hx Endocrine/Hematology History: Denies: Hx Anticoagulant Therapy Respiratory History: Denies: Hx Asthma Sensory History: Reports: Hx Contacts or Glasses Denies: Hx Hearing Aid Opthamlomology History: Reports: Hx Contacts or Glasses Psychiatric History: Reports: Hx Anxiety, Hx Community Mental Health Tx, Other Psychiatric Issues/Disorders - Auditory hallucinations, started one week ago Denies: Hx Eating Disorder, Hx of Violent Episodes Against Others Infectious Disease History: No Infectious Disease History: Denies: Traveled Outside the [place] in Last 30 Days - Family History Known Family History: Positive: Non-Contributory - Social History Alcohol Use: None Hx Substance Use: No Substance Use Type: Reports: None Hx Tobacco Use: No Smoking Status (MU): Never Smoked Tobacco Review of Systems Negative: Fever Negative: Chest Pain Negative: Shortness Of Breath Positive: Vomiting, Nausea. Negative: Abdominal Pain, Diarrhea All Other Systems Reviewed And Are Negative: Yes Physical Exam Triage Information Reviewed: Yes Vital Signs On Initial Exam: Initial Vitals Temp Pulse Resp BP Pulse Ox 98.6 F 145 16 119/79 95 11/01/19 17:05 11/01/19 17:05 11/01/19 17:05 11/01/19 17:05 11/01/19 17:05 Vital Signs Reviewed: Yes Appearance: Positive: Ill-Appearing Skin: Positive: Warm, Dry Eyes: Positive: Normal, EOMI, AQUILES, Conjunctiva Clear ENT: Positive: Pharynx normal, TMs normal, Other - dry mucous membranes Respiratory/Lung Sounds: Positive: Clear to Auscultation, Breath Sounds Present Cardiovascular: Positive: Tachycardia Abdomen Description: Positive: Nontender, Soft Bowel Sounds: Positive: Present Musculoskeletal: Positive: Normal Neurological: Positive: Normal Psychiatric: Positive: Normal Procedures - Sedation Patient Received Moderate/Deep Sedation with Procedure: No Diagnostics - Vital Signs Vital Signs Temp Pulse Resp BP Pulse Ox 11/01/19 17:26 129 119/87 96 11/01/19 17:05 98.6 F 145 16 119/79 95 - Laboratory Result Diagrams: 11/01/19 17:42 11/01/19 17:42 Lab Statement: Any lab studies that have been ordered have been reviewed, and results considered in the medical decision making process. - Radiology abd Radiology Interpretation Completed By: Radiologist Summary of Radiographic Findings: IMPRESSION: No radiographic evidence for a bowel obstruction. Re-Evaluation - Re-Evaluation First Eval Re-Evaluation Time: 18:25 Comment: still nausous Second Eval Re-Evaluation Time: 19:31 Comment: still tachycardic at 110 Third Eval Re-Evaluation Time: 19:42 Comment: unchange, still nauesous will try GI cocktail and protonix Fourth Eval Re-Evaluation Time: 20:37 Comment: will have try some fluids and give one more liter Fifth Eval Re-Evaluation Time: 22:31 Comment: feels better, no longer nauseous GIGU Course/Dx - Course Course Of Treatment: 29 year old male presents with vomiting for past 8 days. He states has not been able to keep anything down. He has not had a bowel movement in many dayss He denies any diarrhea. No fevers. No abdominal pain. No chest pressures or shortness of breath. No cough. No sore throat. No urinary symptoms. the rest family is sick but they did not have the vomiting. He denies any headache. He states he just feels very weak. Denies any recent change in medication. Did not eat anything different. On exam nontender abdomen. Is tachycardic. gave 3 L of fluid and zofran and still nausous. wbc normal. potassium is 3.3. sodium is 127. crp slightly elevated. gave benadryl and reglan. gave potassium supplement. abd xray normal. gave another liter of fluid and patient tolerated fluids and apple sauce. will discharge with zofran. patient understand and agrees with plan. - Diagnoses Differential Diagnoses - Male: Gastroenteritis (Bacterial), Gastroenteritis ( Viral), Vomiting Provider Diagnoses: Vomiting Discharge ED - Sign-Out/Discharge Documenting (check all that apply): Patient Departure - Discharge Plan Condition: Good Disposition: HOME Prescriptions: Ondansetron ODT TAB* [Zofran 4 MG Odt TAB*] 4 mg PO Q6H PRN #16 tab.odt PRN Reason: Nausea Patient Education Materials: Acute Nausea and Vomiting (ED) Referrals: Connor Genao NP [Primary Care Provider] - Additional Instructions: Can take Zofran up to two tablets every 6 hours as needed for nausea Drink small amounts of fluid as tolerated When able to eat follow BRAT diet: Bananas, rice, applesauce, toast Take ibuprofen or Tylenol for pain as needed every 6 hours Follow up with primary within 5 days Return to ED if develop any new or worsening symptoms - Billing Disposition and Condition Condition: GOOD Disposition: Home
[2019-11-01 17:47] LABS: ABS Lymphocytes 0.7 10^3/ul (1.0-4.8); ABS Neutrophils 8.9 10^3/ul (1.5-7.7); Eosinophil % 0.4 %; Hematocrit 51 % (42-52); Hemoglobin 17.8 g/dL (14.0-18.0); Lymphocyte % 6.2 %; Mean Corpuscular HGB Conc 35 g/dL (31-36); Mean Corpuscular Hemoglobin 29 pg (27-31); Mean Corpuscular Volume 84 fL (80-94); Mean Platelet Volume 7.4 fL (7.4-10.4); Platelet Count 278 10^3/uL (150-450); Red Blood Count 6.08 10^6 /uL (4.18-5.48); Red Cell Distribution Width 13 % (10-15); White Blood Count 10.7 10^3/uL (3.5-10.8)
[2019-11-01] MEDS ORDERED: Lactated Ringers 1000 ML Bag* 1,000 ML IV ONE (18:00)
[2019-11-01 18:05] LABS: ALT 12 U/L (7-52); AST 14 U/L (13-39); Albumin 4.6 g/dL (3.2-5.2); Albumin/Globulin Ratio 1.8 (1-3); Alkaline Phosphatase 134 U/L (34-104); Anion Gap 16 mmol/L (2-11); BUN/Creatinine Ratio 27.4 (8-20); Blood Urea Nitrogen 20 mg/dL (6-24); C Reactive Protein 28.44 mg/L (<8.01); CO2 Carbon Dioxide 19 mmol/L (22-32); Calcium 8.9 mg/dL (8.6-10.3); Chloride 92 mmol/L (101-111); EGFR African American 151.6 (>60); EGFR Non-African American 125.3 (>60); Globulin 2.6 g/dL (2-4); Glucose 122 mg/dL (70-100); Magnesium 2.1 mg/dL (1.9-2.7); Potassium 3.3 mmol/L (3.5-5.0); Sodium 127 mmol/L (135-145); Total Protein 7.2 g/dL (6.4-8.9)
--- OUTSIDE RECORDS SUMMARY | 2019-11-01 18:11 | XMS REPORT | Continuity of Care Document ---
:1990 External Reference #:[id number] Author Name Connor Genao NP (transmitted by agent of provider Tanisha Molina) Address [address], [address] [place] [id number] Care Team Providers Name Role Phone Anamaria Aguila MD - Internal Care Team Information Upkeep Worker [phone] Medicine Problems Description No Information Available Social History Type Date Description Comments Sex Unknown ETOH Use Denies alcohol use Tobacco Use Start: Unknown Patient has never smoked Smoking Status Reviewed: 11/01/19 Patient has never smoked Allergies, Adverse Reactions, Alerts Description No Known Drug Allergies Medications Active Medications SIG Qnty Indications Ordering Date Provider Zoloft 1 by mouth every day Unknown 100mg Tablets Ativan 1 tab by mouth every Unknown 0.5mg Tablets 6 hours anxiety and insomnia Invega Sustenna 1 injection per month Unknown intramuscular 234mg/1.5ML Suspension Vraylar 1 by mouth every day Unknown 3mg Capsules Medications Administered in Office Medication SIG Qnty Indications Ordering Provider Date Records Fee Connor Genao NP 04/23/2019 Injection Immunizations Description No Information Available Vital Signs Date Vital Result Comment 11/01/2019 3:48pm Height 63 inches 5'3" Weight 132.50 lb Heart Rate 139 /min BP Systolic 111 mmHg BP Diastolic 77 mmHg Body Temperature 99.2 F O2 % BldC Oximetry 97 % BMI (Body Mass Index) 23.5 kg/m2 12/10/2018 9:40am Height 63 inches 5'3" Weight 96.25 lb Heart Rate 112 /min BP Systolic 140 mmHg BP Diastolic 90 mmHg Body Temperature 98.7 F O2 % BldC Oximetry 97 % BMI (Body Mass Index) 17.0 kg/m2 Results Description No Information Available Procedures Description No Information Available Medical Devices Description No Information Available Encounters Description No Information Available Assessments Date Code Description Provider 11/01/2019 R11.2 Nausea with vomiting, unspecified Connor CATARINA Genao Plan of Treatment No Information Available Functional Status Description No Information Available Mental Status Description No Information Available Referrals Description No Information Available
--- OUTSIDE RECORDS SUMMARY | 2019-11-01 18:11 | XMS REPORT ---
:1990 Author Organization [facility] Care Team Providers Name Role Phone RACHEL DEVINE Primary Care Physician Unavailable Allergies, Adverse Reactions, Alerts Allergy Code CodeSystem Reaction Severity Criticality Status Start Substance Date Moderate Medications Medication Medication Medication Start Stop Route Dose Status Fill Code CodeSystem Date Date Instructions Invega 062059 RxNorm IM 156 completed for 28 Sustenna 06-05 mg/mL day(s) syringe lorazepam RxNorm 2019- oral 0.5 mg completed for 30 2- 05-02 tablet day(s) quetiapine 471569 RxNorm 2019- oral 50 mg 1 completed Take 1 tablet 01-26 04-18 tablet twice a day for twice a 30 day(s) day sertraline 951527 RxNorm 2019- oral 50 mg 1 completed Take 1 1/2 4-18 04-18 1/2 tablet once a tablet day for 30 once a day(s) day Vraylar 8052230 RxNorm 2018-10- oral 3 mg 1 active Take 1 capsule 0 11- capsule once a day for once a 30 day(s) day lorazepam RxNorm 2019- oral 0.5 mg completed for 30 8-13 08-13 tablet day(s) lorazepam RxNorm oral 0.5 mg active for 30 8-13 tablet day(s) quetiapine 461040 RxNorm 2019- oral 50 mg 1 completed Take 1 1/2 -18 06-17 1/2 tablet every tablet evening for 30 every day(s) evening quetiapine 412786 RxNorm 2019 2019- oral 50 mg active for 30 9-10 12-09 tablet day(s) quetiapine 414339 RxNorm 2019- oral 50 mg completed for 30 7- 09-08 tablet day(s) sertraline 436594 RxNorm 2019- oral 100 mg 2 active Take 2 tablet by 05-05 tablet mouth once a day once a for 30 day(s) day quetiapine 942411 RxNorm 2019- oral 50 mg completed for 30 05-05 09-10 tablet day(s) quetiapine 753531 RxNorm 2019- oral 25 mg completed for 27 01-06 04-02 tablet day(s) Invega 487187 RxNorm IM 234 active Inject 1 syringe Sustenna 6-05 mg/1.5 intramuscularly mL 1 every four weeks syringe for 28 day(s) every four weeks sertraline 792430 RxNorm 2019- oral 100 mg 1 completed Take 1 1/ 2 02-11 07- 1/2 tablet once a tablet day for 30 once a day(s) day Problems Problem Name Code CodeSystem Alternate Alternate Start End Status Narrative Code CodeSystem Date Date Schizophreni 69103816 SNOMED-CT 2018-10 Active a, 0-02 unspecified Unspecified 13346542 SNOMED-CT Active anxiety 4-01 disorder Childhood 70726330 SNOMED-CT Active autism 4-01 Relevant diagnostic tests/laboratory data Narrative No Information Procedures Procedure Code CodeSystem Target Date of Status Service Device Device Device Name Site Procedure Delivery Code Name UID Location Psychotherap [id number] SNOMED-CT () 2019-01-27 complete Mental y, 30 87 d Health- minutes with [place] patient when [address] with an [facility], and [facility] service [id number] (List [id number] separately in addition to the code for primary procedure) Psychotherap [id number] SNOMED-CT () 2019-04-08 complete Mental y, 30 87 d Health- minutes with [place] patient when [address] with an [facility], and [facility] service [id number] (List [id number] separately in addition to the code for primary procedure) Psychotherap [id number] SNOMED-CT () 2019-08-10 complete Mental y, 45 04 d Health- minutes with [place] patient [address], [id number] [id number] Psychotherap [id number] SNOMED-CT () 2019-06-15 complete Mental y, 45 04 d Health- minutes with [place] patient [address], [id number] [phone] Psychotherap [id number] SNOMED-CT () 2019-07-13 complete Mental y, 45 04 d Health- minutes with [place] patient [address], [id number] [phone] Comprehensiv 810575 SNOMED-CT () 2019-04-08 complete Mental e medication 0 d Health- services, [place] [address] [place] [address] [place] [address], [id number] [phone] Comprehensiv 404009 SNOMED-CT () 2019-05-05 complete Mental e medication 0 d Health- services, [place] per [address] [place] [address] [place] [address], [id number] [phone] Comprehensiv 111360 SNOMED-CT () 2019-02-11 complete Mental e medication 0 d Health- services, [place] [address] [place] [address] [place] [address], [id number] [phone] Comprehensiv 428506 SNOMED-CT () 2019-03-11 complete Mental e medication 0 d Health- services, [place] per [address] [place] [address] [place] [address], [id number] [phone] Comprehensiv 533347 SNOMED-CT () 2019-06-30 complete Mental e medication 0 d Health- services, [place] [address] [place] [address] [place] [address], [id number] [phone] Comprehensiv [id number] SNOMED-CT () 2019-06-02 complete Mental e medication 0 d Health- services, [place] [address] [place] [address] [place] [address], [id number] [phone] Comprehensiv [id number] SNOMED-CT () 2019-07-28 complete Mental e medication 0 d Health- services, [place] per [address] [place] [address] [place] [address], [id number] [phone] Comprehensiv [id number] SNOMED-CT () 2019-08-24 complete Mental e medication 0 d Health- services, [place] [address] [place] [address] [place] [address], [id number] [phone] Comprehensiv [id number] SNOMED-CT () 2019-09-21 complete Mental e medication 0 d Health- services, [place] per [address] [place] [address] [place] [address], [id number] [phone] Office or [id number] SNOMED-CT () 2019-07-13 complete Mental other 7 d Health- outpatient [facility] visit for [address], established [id number] patient, [phone] which requires at least 2 of these 3 [place] components: An expanded problem focused history; An expanded problem focused examination; Medical decision making of low Office or [id number] SNOMED-CT () 2019-07-28 complete Mental other 7 d Health- outpatient [place] visit for [address], established [id number] patient, [phone] which requires at least 2 of these 3 [place] components: An expanded problem focused history; An expanded problem focused examination; Medical decision making of low Office or [id number] SNOMED-CT () 2019-05-05 complete Mental other 7 d Health- outpatient [place] visit for [address], established [id number] patient, [phone] which requires at least 2 of these 3 [place] components: An expanded problem focused history; An expanded problem focused examination; Medical decision making of low Office or [id number] SNOMED-CT () 2019-04-08 complete Mental other 7 d Health- outpatient [place] visit for [address], established [id number] patient, [phone] which requires at least 2 of these 3 [place] components: An expanded problem focused history; An expanded problem focused examination; Medical decision making of low Office or [id number] SNOMED-CT () 2019-02-11 complete Mental other 7 d Health- outpatient [place] visit for [address], established [id number] patient, [phone] which requires at least 2 of these 3 [place] components: An expanded problem focused history; An expanded problem focused examination; Medical decision making of [facility] Office or 295480 SNOMED-CT () 2019-09-28 complete Mental other 6 d Health- outpatient [place] visit for [address], established [id number] patient, [phone] which requires at least 2 of these 3 [place] components: A problem focused history; A problem focused examination; [facility] medical decision making. [facility] Office or [id number] SNOMED-CT () 2019-08-31 complete Mental other 6 d Health- outpatient [place] visit for [address], established [id number] patient, [phone] which requires at least 2 of these 3 [place] components: A problem focused history; A problem focused examination; [facility] medical decision making. [facility] Office or [id number] SNOMED-CT () 2019-08-11 complete Mental other 6 d Health- outpatient [place] visit for [address], established [id number] patient, [phone] which requires at least 2 of these 3 [place] components: A problem focused history; A problem focused examination; [facility] medical decision making. [facility] Office or 750915 SNOMED-CT () 2019-03-11 complete Mental other 6 d Health- outpatient [place] visit for [address], established [id number] patient, [phone] which requires at least 2 of these 3 [place] components: A problem focused history; A problem focused examination; [facility] medical decision making. [facility] SNOMED-CT () 2019-10-06 complete Mental d Health[address], [id number] [id number] SNOMED-CT () 2019-03-31 complete Mental d Health[address], [id number] [phone] SNOMED-CT () 2019-05-26 complete Mental d Health[address], [id number] [phone] SNOMED-CT () 2019-01-25 complete Mental d [address], [id number] [id number] SNOMED-CT () 2019-04-28 complete Mental d [address], [id number] [phone] SNOMED-CT () 2019-02-25 complete Mental d [address], [id number] [phone] SNOMED-CT () 2019-05-11 [facility] Mental d [address], [id number] [phone] SNOMED-CT () 2019-09-08 [facility] Mental d [address], [id number] [phone] Encounters/Encounter Diagnoses Encounter Name Encounter Diagnosis Diagnosis Diagnosis Date of Service Code Code Name CodeSystem Diagnosis Delivery Location [facility] [id number] Schizophrenia SNOMED-CT 2019-10-06 Behavioral Individual 30 , unspecified Health [facility] [address] [place] [address], [id number] Vital Signs No Information Social History Element Description Description Start End Code CodeSystem AdditionalInfo Date Date SexAssignedAtBirth Male 1990-0 M AdministrativeGender 8-11 Hospital Discharge Instructions Reason For Referral Medical Equipment FDA Assessments
--- OUTSIDE RECORDS SUMMARY | 2019-11-01 18:11 | XMS REPORT ---
:1990 Author Organization [facility] Care Team Providers Name Role Phone RACHEL DEVINE Primary Care Physician Unavailable Allergies, Adverse Reactions, Alerts Allergy Code CodeSystem Reaction Severity Criticality Status Start Substance Date Moderate Medications Medication Medication Medication Start Stop Route Dose Status Fill Code CodeSystem Date Date Instructions sertraline 984630 RxNorm 2019- oral 100 mg 1 completed Take 1 1/ 2 4- 07-10 1/2 tablet once a tablet day for 30 once a day(s) day quetiapine 866816 RxNorm 2019- oral 50 mg completed for 30 05-05 09-10 tablet day(s) Vraylar 2214802 RxNorm 2018-10 2019- oral 3 mg 1 active Take 1 capsule 0 11- capsule once a day for once a 30 day(s) day lorazepam RxNorm 2019- oral 0.5 mg completed for 30 2- 05-02 tablet day(s) sertraline 319123 RxNorm 2019- oral 100 mg 2 active Take 2 tablet by 05-05 12-31 tablet mouth once a day once a for 30 day(s) day quetiapine 102282 RxNorm 2019- oral 25 mg completed for 27 3-13 04-02 tablet day(s) quetiapine 526279 RxNorm 2019- oral 50 mg active for 30 9-10 12-09 tablet day(s) lorazepam RxNorm 2019 oral 0.5 mg active for 30 8-13 tablet day(s) lorazepam RxNorm 2019- oral 0.5 mg completed for 30 8- 08-13 tablet day(s) sertraline 287443 RxNorm 2019- oral 50 mg 1 completed Take 1 1/2 -18 04-18 1/2 tablet once a tablet day for 30 once a day(s) day Invega 699366 RxNorm 2019- IM 156 completed for 28 Sustenna 06-05 mg/mL day(s) syringe Invega 983487 RxNorm 2019-0 IM 234 active Inject 1 syringe Sustenna 6-05 mg/1.5 intramuscularly mL 1 every four weeks syringe for 28 day(s) every four weeks quetiapine 827057 RxNorm 2019- oral 50 mg 1 completed Take 1 tablet 01-26 tablet twice a day for twice a 30 day(s) day quetiapine 276437 RxNorm 2019- oral 50 mg completed for 30 05-05 09-08 tablet day(s) quetiapine 867668 RxNorm 0 2019- oral 50 mg 1 completed Take 1 1/2 02-11 06 1/2 tablet every tablet evening for 30 every day(s) evening Problems Problem Name Code CodeSystem Alternate Alternate Start End Status Narrative Code CodeSystem Date Date Schizophreni 12154584 SNOMED-CT 2018-10 Active a, 0-02 unspecified Childhood 57897813 SNOMED-CT Active autism 4- Unspecified 41101357 SNOMED-CT Active anxiety 4-01 disorder Relevant diagnostic tests/laboratory data Narrative No Information Procedures Procedure Code CodeSystem Target Date of Status Service Device Device Device Name Site Procedure Delivery Code Name UID Location Psychotherap [id number] SNOMED-CT () 2019-01-27 complete Mental y, 30 87 d Health- minutes with [place] patient when [address] with an [facility], and [facility] service [id number] (List [id number] separately in addition to the code for primary procedure) Psychotherap [id number] SNOMED-CT () 2019-04-08 complete Mental y, 30 87 d Health- minutes with [place] patient when [address] with an [facility], and [facility] service [id number] (List [id number] separately in addition to the code for primary procedure) Psychotherap [id number] SNOMED-CT () 2019-08-10 complete Mental y, 45 04 d Health- minutes with [place] patient [address], [id number] [phone] Psychotherap [id number] SNOMED-CT () 2019-06-15 complete Mental y, 45 04 d Health- minutes with [place] patient [address], [id number] [phone] Psychotherap [id number] SNOMED-CT () 2019-07-13 complete Mental y, 45 04 d Health- minutes with [place] patient [address], [id number] [phone] Comprehensiv 219228 SNOMED-CT () 2019-04-08 complete Mental e medication 0 d Health- services, [place] [address] [place] [address], [id number] [phone] Comprehensiv [id number] SNOMED-CT () 2019-05-05 complete Mental e medication 0 d Health- services, [place] per [place] [address] [place] [address], [id number] [phone] Comprehensiv 472149 SNOMED-CT () 2019-02-11 complete Mental e medication 0 d Health- services, [place] [address] [place] [address], [id number] [phone] Comprehensiv [id number] SNOMED-CT () 2019-03-11 complete Mental e medication 0 d Health- services, [place] per [place] [address] [place] [address], [id number] [phone] Comprehensiv 131619 SNOMED-CT () 2019-06-30 complete Mental e medication 0 d Health- services, [place] [address] [place] [address], [id number] [id number] Comprehensiv 086836 SNOMED-CT () 2019-06-02 complete Mental e medication 0 d Health- services, [place] [address] [place] [address], [id number] [phone] Comprehensiv 207104 SNOMED-CT () 2019-07-28 complete Mental e medication 0 d Health- services, [place] per [place] [address] [place] [address], [id number] [phone] Comprehensiv 469771 SNOMED-CT () 2019-08-24 complete Mental e medication 0 d Health- services, [place] [address], [place], [id number] [phone] Office or [id number] SNOMED-CT () 2019-07-13 complete Mental other 7 d Health- outpatient [facility] visit [facility] [address] [facility] [id number] patient, [phone] which requires at least 2 of these 3 [place] components: An expanded problem focused history; An expanded problem focused examination; Medical decision making of low Office or [id number] SNOMED-CT () 2019-07-28 complete Mental other 7 d Health- outpatient [place] visit for [address], established [id number] patient, [phone] which requires at least 2 of these 3 [place] components: An expanded problem focused history; An expanded problem focused examination; Medical decision making of low Office or 454357 SNOMED-CT () 2019-05-05 complete Mental other 7 d Health- outpatient [place] visit for [address] [facility] [id number] patient, [phone] which requires at least 2 of these 3 [place] components: An expanded problem focused history; An expanded problem focused examination; Medical decision making of low Office or 364292 SNOMED-CT () 2019-04-08 complete Mental other 7 d Health- outpatient [place] visit for [address] [facility] [id number] patient, [phone] which requires at least 2 of these 3 [place] components: An expanded problem focused history; An expanded problem focused examination; Medical decision making of low Office or 708757 SNOMED-CT () 2019-02-11 complete Mental other 7 d Health- outpatient [place] visit for [address] [facility] [id number] patient, [phone] which requires at least 2 of these 3 [place] components: An expanded problem focused history; An expanded problem focused examination; Medical decision making of low Office or 390214 SNOMED-CT () 2019-03-11 complete Mental other 6 d Health- outpatient [place] visit for [address] [facility] [id number] patient, [phone] which requires at least 2 of these 3 [place] components: A problem focused history; A problem focused examination; [facility] medical decision making. [facility] Office or [id number] SNOMED-CT () 2019-08-11 complete Mental other 6 d Health- outpatient [place] visit for [address], established [id number] patient, [phone] which requires at least 2 of these 3 [place] components: A problem focused history; A problem focused examination; [place] medical decision making. [facility] Office or 566024 SNOMED-CT () 2019-08-31 complete Mental other 6 d Health- outpatient [place] visit for [address], established [id number] patient, [phone] which requires at least 2 of these 3 [place] components: A problem focused history; A problem focused examination; [place] medical decision making. [facility] SNOMED-CT () 2019-03-31 complete Mental d [address], [id number] [phone] SNOMED-CT () 2019-05-26 complete Mental d Health[address], [id number] [phone] SNOMED-CT () 2019-01-25 complete Mental d [address], [id number] [phone] SNOMED-CT () 2019-04-28 complete Mental d Health[address], [id number] [phone] SNOMED-CT () 2019-02-25 complete Mental d Health[address], [id number] [phone] SNOMED-CT () 2019-05-11 complete Mental d [address], [id number] [phone] Encounters/Encounter Diagnoses Encounter Name Encounter Diagnosis Diagnosis Diagnosis Date of Service Code Code Name CodeSystem Diagnosis Delivery Location [facility] - [id number] Schizophrenia SNOMED-CT 2019-09-08 Behavioral Individual 30 , unspecified Health min Clinic , , , Vital Signs No Information Social History Element Description Description Start End Code CodeSystem AdditionalInfo Date Date SexAssignedAtBirth Male M AdministrativeGender 06-06 Hospital Discharge Instructions Reason For Referral Medical Equipment FDA Assessments
[2019-11-01] MEDS ORDERED: Metoclopramide IV* 5 MG/ML 2 ML VIAL IV SLOW PU ONE (18:26)
[2019-11-01] MEDS ORDERED: diPHENhydraMINE IV* 50 MG/ML 1 ml VIAL (BENADRYL) SLOW PUSH ONE (18:26)
[2019-11-01 18:34] LABS: TSH (Thyroid Stimulating Horm) 1.81 mcIU/mL (0.34-5.60)
[2019-11-01] MEDS ORDERED: Potassium Chloride* LIQUID 20 MEQ/15 ML UDC PO ONE (18:59)
[2019-11-01] MEDS ORDERED: Al Hydrox/Mg Hydrox/Simet LIQ* 30 ML UDC PO ONE (19:42)
[2019-11-01] MEDS ORDERED: Lidocaine 2% VISCOUS* 15 ML UDC PO ONE (19:42)
[2019-11-01] MEDS ORDERED: Pantoprazole IV* 40 MG IV ONE (19:43)
[2019-11-01] MEDS ORDERED: Lidocaine 2% VISCOUS* 15 ML UDC ONE (19:57)
[2019-11-01] MEDS ORDERED: Al Hydrox/Mg Hydrox/Simet LIQ* 30 ML UDC ONE (19:57)
[2019-11-01] MEDS ORDERED: NS 0.9% 1000 ML** 1,000 ML IV ONE (20:37)
[2019-11-01] MEDS ORDERED: O ndansetron ODT 4MG 5TAB PRPK 4 MG PAK PO ONE (22:29)
[2019-11-01 22:36] VITALS: BP 114/74
== END 2019-11-01 22:58 | disposition home or self-care (01) ==
LOC: ED 17:02
DX: R11.2 Nausea with vomiting, unspecified (principal); Z79.899 Other long term (current) drug therapy
CPT/HCPCS: 36415; 74018; 80053; 83605; 83690; 83735; 84443; 85025; 86140; 96361; 96374; 96375; 99284; A9270-GY; J1200; J2405; J2765